=== PATIENT | male | born 1995 | race Caucasian/White ===

== ENCOUNTER → 2022-10-12 | Outpatient (CLI) | payer MEDICAID ==
--- NOTE | 2022-10-12 17:54 | US ---
EXAMINATION TYPE: US abdomen RUQ DATE OF EXAM: 10/12/2022 COMPARISON: NONE CLINICAL INDICATION: Male, 27 years old with history of R10.811 RIGHT UPPER QUADRANT ABDOMINAL TENDER NESS; TECHNIQUE: Multiple sonographic images of the right upper quadrant are obtained. FINDINGS: EXAM MEASUREMENTS: Liver Length: 17.1 cm Gallbladder Wall: 0.2 cm CBD: 0.4 cm Right Kidney: 10.8 x 4.4 x 5.6 cm Pancreas: wnl Liver: Increased echogenicity, borderline enlarged. No focal lesion seen. Gallbladder: wnl Evidence for sonographic Avalos's sign: no CBD: wnl Right Kidney: wnl IMPRESSION: Borderline hepatomegaly at 17.1 cm. Moderate hepatic steatosis. Correlation with LFTs, lipid profile, and patient risk factors. Appropriate clinical management recommended. No gallstones or biliary ductal dilatation.
== END | disposition home or self-care (01) ==
LOC: RADUSWWP 14:20
PROVIDERS: ATTEND Family Medicine
DX: K76.0 Fatty (change of) liver, not elsewhere classified (principal); R16.0 Hepatomegaly, not elsewhere classified
CPT/HCPCS: 76705